=== PATIENT | female | born 1985 | race Caucasian/White ===

== ENCOUNTER 2016-07-11 01:54 | Emergency (ER) | payer BC ==
[~2016-07-11] VITALS: Ht 157.5 cm; Wt 49.9 kg
[~2016-07-11 01:54] MED LIST: ACHD5005 PO; DCS100C PO; FRS325T PO; IBP600T1 PO; OXYC-12 PO; PREN1TAB25 PO
--- OUTSIDE RECORDS SUMMARY | 2016-07-11 02:01 | XMS REPORT | Continuity of Care Document ---
Author Author [facility] Organization [facility] Address Unknown Phone Unavailable Care Team Providers Care Religion Instructor Name Role Phone NO, LOCAL PHYSICIAN PCP Unavailable Insurance Providers Payer Name Policy Number Subscriber [id number] LexisОлег 01 Advance Directives Directive Response Recorded Date/Time Advance Directives No 10/11/14 6:18am Health Care Power of Benefits Counselor No 10/11/14 6:18am Organ Donor Yes 10/11/14 6:18am Resuscitation Status Full Code 10/11/14 6:18am Problems No known problems or medical conditions. Medications Medication Dose Route Sig Days/Qty Instructions Order Date Discontinued Date Status Vit#96/Ferrous Fum/Fa 1 Each PO DAILY 04/06/12 Active Ferrous Sulfate 1 Tab PO DAILY 04/06/12 Active Oxycodone Hcl/Acetaminophen 1 - 2 Each PO Q4-6 hours PRN 45 Qty 10/04/14 Discontinued Ibuprofen 600 Mg PO EVERY 6 HOURS PRN 40 Qty 04/10/12 10/04/14 Discontinued Docusate Sodium 100 Mg PO TWICE A DAY 40 Qty 10/13/14 Active Acetaminophen/Hydrocodone Bitart (Hydrocodone/APAP 5/325mg) 1-2 Tab PO EVERY 4HRS PRN PAIN 50 Qty 10/13/14 Active Ibuprofen 600 Mg PO EVERY 6 HOURS PRN PAIN 60 Qty 10/13/14 Active Social History Social History Problem Response Recorded Date/Time Alcohol Use Denies Use 10/11/2014 6:39am Recreational Drug Use No 10/11/2014 6:39am Recent Foreign Travel No 10/11/2014 6:39am Recent Infectious Disease Exposure No 10/11/2014 6:39am Hospitalization with Isolation Denies 10/13/2014 1:54pm Sexually Transmitted Disease No 10/11/2014 6:39am HIV/AIDS No 10/11/2014 6:39am Smoking Status Never a Smoker 10/11/2014 6:22am Do you dip or chew tobacco? No 10/11/2014 6:22am Query Response Start Date Stop Date Smoking Status Never a Smoker Hospital Discharge Instructions Patient Instructions Physician Instructions New, Converted or Re-Newed RX: RX on Chart Additional Follow Up: Yes Orders/Referrals Return to office Dr. Valiente in 7-10 days, and in 6 weeks Activity: Activity as Tolerated Driving Instructions: You May Drive (do not drive while taking narcotic pain meds) NO SMOKING: NO SMOKING Nothing Inside Vagina: No Douching, No [place], No Tampons Discharge Diet: No Restrictions Symptoms to Report to : Bleeding Excessive, Pain Increased, Fever Over 101 Degrees F, Vaginal Bleeding Increase, Questions/Concerns For Any Problems or Questions: Contact Your Physician Infection Signs and Symptoms: Increased Redness, Foul Odor of Wound, Increased Drainage, Skin Itchy or Has a Rash, Increased Swelling, Temperature Above 101 F Operative Area Clean and Dry: Keep Incision Clean/Dry Stitches/[place]/Dermabond: Dermabond, Care of Stitches Bathing Instructions: Shower Plan of Care Discharge Date 10/13/14 1:30pm Disposition 30 STILL A PATIENT Instructions/Education Provided DISCHARGE SECTION DISCHARGE Forms Provided PDI Prescriptions See Medications Section Referrals LAMAR VALIENTE DO (Unspecified) 10/19/14 Address: [address] [place] [phone] Reason(s) for Referral: Incision Check: 10/19/2014 at 1:30PM. LAMAR VALIENTE DO (Unspecified) 11/23/14 Address: [address] [place] [phone] Reason(s) for Referral: Follow-Up Appointment: 11/23/2014 at 11:00 AM. Functional Status No functional status results. Allergies, Adverse Reactions, Alerts Allergen Type Severity Reaction Status Last Updated No Known Drug Allergies Active 04/06/12 Immunizations Name Given Type Date of Influenza Vaccine 04/01/12 Historical Tetanus Booster (TDap) Less than 5yrs Historical Tdap 10/13/14 Administered Vital Signs Acute Vital Signs Vital Response Date/Time Temperature (Fahrenheit) 97.5 degrees F (97.6 - 99.5) Temperature (Calculated Celsius) 36.21416 degrees C (36.4 - 37.5) Temperature Source Temporal Pulse Rate (adult) 64 bpm (60 - 90) Respiratory Rate 18 bpm (12 - 24) O2 Sat by Pulse Oximetry 99 % (88 - 100) Blood Pressure 107/65 mm Hg Pain Pain Intensity 0 Height (Feet) 5 feet Height (Inches) 2.00 inches Height (Calculated Centimeters) 157.507509 cm Weight (Pounds) 136 pounds Weight (Ounces) 0.8 oz Weight (Calculated Grams) 06628.243 gm Weight (Calculated Kilograms) 61.852052 kilograms Calculated BMI 24.87 Results Laboratory Results Test Name Result Units Flags Reference Collection Date/Time Result Date/ Time Comments White Blood Count 10.3 10^3/uL 4.3-11.0 10/12/2014 5:10/12/2014 5: 55am Red Blood Count 3.32 10^6/uL L 4.35-5.85 10/12/2014 5:10/12/2014 5: 55am Hemoglobin 9.7 G/DL L 11.5-16.0 10/12/2014 5:10/12/2014 5:55am Hematocrit 29 % L 35-52 10/12/2014 5:10/12/2014 5:55am Mean Corpuscular Volume 89 FL 80-99 10/12/2014 5:10/12/2014 5: 55am Mean Corpuscular Hemoglobin 29 PG 25-34 10/12/2014 5:10/12/2014 5: 55am Mean Corpuscular Hemoglobin Concent 33 G/DL 32-36 10/12/2014 5: 5:55am Red Cell Distribution Width 13.7 % 10.0-14.5 10/12/2014 5:34am 2014 5:55am Platelet Count 137 10^3/uL 130-400 10/12/2014 5:10/12/2014 5:55am Mean Platelet Volume 11.3 FL H 7.4-10.4 10/12/2014 5:34am 10/12/2014 5: 55am Neutrophils (%) (Auto) 77 % H 42-75 10/12/2014 5:10/12/2014 5:55am Lymphocytes (%) (Auto) 13 % 12-44 10/12/2014 5:34a10/12/2014 5:55am Monocytes (%) (Auto) 9 % 0-12 10/12/2014 5:10/12/2014 5:55am Eosinophils (%) (Auto) 0 % 0-10 10/12/2014 5:10/12/2014 5:55am Basophils (%) (Auto) 0 % 0-10 10/12/2014 5:10/12/2014 5:55am Neutrophils # (Auto) 7.9 X 10^3 H 1.8-7.8 10/12/2014 5:34a10/12/2014 5: 55am Lymphocytes # (Auto) 1.4 X 10^3 1.0-4.0 10/12/2014 5:34a10/12/2014 5: 55am Monocytes # (Auto) 0.9 X 10^3 0.0-1.0 10/12/2014 5:34a10/12/2014 5: 55am Eosinophils # (Auto) 0.0 10^3/uL 0.0-0.3 10/12/2014 5:10/12/2014 5 :55am Basophils # (Auto) 0.0 10^3/uL 0.0-0.1 10/12/2014 5:10/12/2014 5: 55am Urine Color YELLOW 10/11/2014 8:10am 10/11/2014 8:56am Urine Clarity CLEAR 10/11/2014 8:10am 10/11/2014 8:56am Urine pH 7 5-9 10/11/2014 8:10am 10/11/2014 8:56am Urine Specific [place] 1.005 * 1.016-1.022 10/11/2014 8:10am 2014 8:56am Urine Protein NEGATIVE NEGATIVE 10/11/2014 8:10am 10/11/2014 8:56am Urine Glucose (UA) NEGATIVE NEGATIVE 10/11/2014 8:10am 10/11/2014 8: 56am Urine RBC (Auto) NEGATIVE NEGATIVE 10/11/2014 8:10am 10/11/2014 8: 56am Urine Ketones NEGATIVE NEGATIVE 10/11/2014 8:10am 10/11/2014 8:56am Urine Nitrite NEGATIVE NEGATIVE 10/11/2014 8:10am 10/11/2014 8:56am Urine Bilirubin NEGATIVE NEGATIVE 10/11/2014 8:10am 10/11/2014 8: 56am Urine Urobilinogen NORMAL MG/DL NORMAL 10/11/2014 8:10am 10/11/2014 8: 56am Urine Leukocyte Esterase NEGATIVE NEGATIVE 10/11/2014 8:10am 2014 8:56am Urine RBC NONE /HPF 10/11/2014 8:10am 10/11/2014 8:56am Urine WBC NONE /HPF 10/11/2014 8:10am 10/11/2014 8:56am Urine Bacteria NONE /HPF 10/11/2014 8:10am 10/11/2014 8:56am Urine Squamous Epithelial Cells RARE /HPF 10/11/2014 8:10am 2014 8:56am Urine Crystals NONE /LPF 10/11/2014 8:10am 10/11/2014 8:56am Urine Casts NONE /LPF 10/11/2014 8:10am 10/11/2014 8:56am Urine Mucus NEGATIVE /LPF 10/11/2014 8:10am 10/11/2014 8:56am Urine Culture Indicated NO 10/11/2014 8:10am 10/11/2014 8:56am Procedures Procedure Status Date Provider(s) section completed 10/11/14 LAMAR VALIENTE DO Encounters Encounter Location Date/Time Discharged Inpatient [facility] 10/11/14 6:06am Registered Clinic [facility] 10/04/14 8:58am
[2016-07-11] MEDS ORDERED: TERC80SU4 VG (02:19)
[2016-07-11] MEDS ORDERED: BENZ30CR2 TP (02:19)
[2016-07-11] MEDS ORDERED: AZITHROMYCIN 250 MG TAB (ZITHROMAX) PO STA (02:47)
[2016-07-11] MEDS ORDERED: KETOROLAC 60 MG/2 ML VIAL IM STA (02:47)
[2016-07-11] MEDS ORDERED: LIDOCAINE 2% VISCOUS 15 ML UDC MM ONE (03:00)
[2016-07-11] MEDS ORDERED: LIDOCAINE 1% INJ 20 ML (XYLOCAINE) VIAL INJ ONE (03:00)
[2016-07-11] MEDS ORDERED: cefTRIAXone 1 GM (ROCEPHIN) VIAL IM ONE (03:00)
[2016-07-11] MEDS ORDERED: fluCOnazole (DIFLUCAN) 100 MG TAB PO ONE (03:00)
--- NOTE | 2016-07-11 03:06 | ED GU-Female ---
General Chief Complaint: -Female Stated Complaint: POSS YEAST INFECTION Nursing Triage Note: pt reports has been treating her self for a yeast infection for a couple days but continues to get worse. pt reports pain and swelling to perineal area. Nursing Sepsis Screen: No Definite Risk Source: patient History of Present Illness Time seen by provider: 02:25 Initial Comments C/O PERINEAL AND VAGINAL AND EXTERNAL GENITAL PAIN, SWELLING, ITCHING AND BURNING WITH VAGINAL DISCHARGE X 1 WEEK INITIALLY HAD PAIN IN AREA WITH BM, THEN SYMPTOMS SPREAD TO ENTIRE EXTERNAL GENITAL AREA PAIN IS SEVERE--TOOK 1 HYDROCODONE TONIGHT ( LEFT OVER FROM PREVIOUS CHILDBIRTH ) THOUGHT SHE HAD YEAST INFECTION, SO USED OTC MONISTAT WITHOUT RELIEF RX FOR TERCONAZOLE 80 MG X 3 NIGHTS CALLED IN ON Friday07/08/[address] VALIENTE'S OFFICE, WITHOUT IMPROVEMENT HAS CONTINUED TO HAVE SWELLING AND SEVERE PAIN TO LABIAL AREA NO PROBLEMS URINATING NO FEVER NO ABDOMINAL OR FLANK PAIN LMP 1 WEEK AGO, AT ONSET OF SYMPTOMS. WAS NORMAL. PT IS ON OCP'S PT AND BOTH DENY ANY OTHER SEXUAL CONTACTS. AND DOES NOT HAVE ANY SYMPTOMS PT HAS NO HISTORY OF SIMILAR PT HAS AN APPOINTMENT TODAY AT 1330 [address] MILAGROS BONILLA AT [address]. VALIENTE'S OFFICE. PCP: NONE--GOES TO [facility]RG[facility] FOR MOST MEDICAL CARE IF NEEDED FARM SERVICE ADVISER: DR. VALIENTE Allergies and Home Medications Allergies Coded Allergies: No Known Drug Allergies (Unverified , 04/06/12) Home Medications Benzocaine/Resorcinol 28 Gm Cream..g. 28 GM TP (Reported) Fluconazole 200 Mg Tablet #10 200 MG PO DAILY Prescribed by: JOELLEN GARCIA on 07/11/16313 Hydrocodone/Ibuprofen 1 Each Tablet #20 1-2 EACH PO Q4H Prescribed by: JOELLEN GARCIA on 07/11/16313 Lidocaine HCl 15 Ml Solution #1 15 ML MM Q 1-2 HOURS Prescribed by: JOELLEN GARCIA on 07/11/16313 Metronidazole 500 Mg Tablet #40 500 MG PO QID Prescribed by: JOELLEN GARCIA on 07/11/16313 Terconazole 80 Mg Supp.vag 80 MG VG (Reported) Valacyclovir HCl 1,000 Mg Tablet #30 1,000 MG PO TID Prescribed by: JOELLEN GARCIA on 07/11/16313 Constitutional: no symptoms reported Respiratory: no symptoms reported Cardiovascular: no symptoms reported Gastrointestinal: no symptoms reported Genitourinary: see HPI : No LMP: Jul 04, 2016 Musculoskeletal: no symptoms reported Skin: no symptoms reported Psychiatric/Neurological: No Symptoms Reported Endocrine: No Symptoms Reported Past Sqkvxvd-Tqmsci-Pqezkl Hx Patient Social History Alcohol Use: Occasionally Uses Recreational Drug Use: No Smoking Status: Never a Smoker Recent Foreign Travel: No Contact w/Someone Who Travel: No Recent Infectious Disease Expo: No Recent Hopitalizations: No Physical Abuse Screen: No Sexual Abuse: No Immunizations Up To Date Tetanus Booster (TDap): Less than 5yrs Date of Influenza Vaccine: Feb 24, 2017 Surgeries HX Surgeries: Yes (LEEP, primary 2011) Surgeries: Section Respiratory Hx Respiratory Disorders: No Cardiovascular Hx Cardiac Disorders: No Neurological Hx Neurological Disorders: No Reproductive System Hx Reproductive Disorders: Yes (CERVICAL DISPLASIA-LEEP) Sexually Transmitted Disease: No HIV/AIDS: No Female Reproductive Disorders: Denies Genitourinary Hx Genitourinary Disorders: No Gastrointestinal Hx Gastrointestinal Disorders: No Musculoskeletal Hx Musculoskeletal Disorders: No Endocrine Hx Endocrine Disorders: No HEENT HX ENT Disorders: Yes (CONTACTS) Loss of Vision: Denies Hearing Impairment: Denies Cancer Hx Cancer: No Psychosocial Hx Psychiatric Problems: No Integumentary HX Skin/Integumentary Disorder: No Blood Transfusions Hx Blood Disorders: No Adverse Reaction to a Blood Tr: No Family Medical History Family Medial History: Anxiety disorder 19 FATHER Hypercholesterolemia 19 MOTHER Physical Exam Vital Signs Vital Sign - Last 12Hours 07/11/16 02:12 Temp 99.1 Pulse 97 Resp 18 B/P 121/95 Pulse Ox 95 Capillary Refill : Less Than 3 Seconds General Appearance: WD/WN other (TEARFUL) thin Cardiovascular: regular rate, rhythm no murmur Respiratory: normal breath sounds Gastrointestinal: normal bowel sounds non tender soft Pelvic: normal adnexa no cerv. motion tender no masses discharge (VERY LARGE/ PROFUSE PURULENT DISCHARGE. CERVIX VERY FRIABLE)No tender adnexa, No tender uterus, other (MODERATE SWELLING AND ERYTHEMA TO LABIA MINOR[place] AND CLITORAL AREA. FEW SCATTERED VERY SHALLOW ULCERATIONS/AREAS OF MACERATION TO INTROITUS AND PERINEUM . ) Back: no CVA tenderness Extremities: normal inspection Neurologic/Psychiatric: no motor/sensory deficits alert oriented x 3 Skin: normal color warm/dry Progress/Results/Core Measures Results/Orders Lab Results Laboratory Tests Test 07/11/16 02:32 07/11/16 03:10 Range/Units Urine Bacteria MODERATE H /HPF Urine Bilirubin NEGATIVE NEGATIVE Urine Casts NONE /LPF Urine Clarity SLIGHTLY CLOUDY Urine Color YELLOW Urine Crystals NONE /LPF Urine Culture Indicated YES Urine Glucose (UA) NEGATIVE NEGATIVE Urine Ketones NEGATIVE NEGATIVE Urine Leukocyte Esterase 3+ H NEGATIVE Urine Mucus NEGATIVE /LPF Urine Nitrite NEGATIVE NEGATIVE Urine Protein NEGATIVE NEGATIVE Urine RBC 0-2 /HPF Urine RBC (Auto) 3+ H NEGATIVE Urine Specific [place] 1.015 L 1.016-1.022 Urine Squamous Epithelial Cells 5-10 /HPF Urine Urobilinogen NORMAL NORMAL MG/DL Urine WBC 10-25 H /HPF Urine pH 6.5 5-9 My Orders Orders-JOELLEN GARCIA DO Ceftriaxone Injection (Rocephin Injectio (07/11/16 03:00) Azithromycin Tablet (Zithromax Tablet) (07/11/16 02:47) Ketorolac Injection (Toradol Injection) (07/11/16 02:47) Lidocaine 1% Injection (Xylocaine 1% Inj (07/11/16 03:00) Neisseria Gonorrhea Dna (07/11/16 02:47) Chlam Dna Probe (07/11/16 02:47) Genital Culture (07/11/16 02:47) Wet Prep (07/11/16 02:47) [place] Prep (07/11/16 02:47) Lidocaine 2% Viscous 15 Ml (Xylocaine Vi (07/11/16 03:00) Fluconazole Tablet (Diflucan Tablet) (07/11/16 03:00) Herpes Simplex Culture (07/11/16 02:59) Ua Culture If Indicated (07/11/16 03:11) Urine Bedside (07/11/16 03:11) Urine Culture (07/11/16 03:10) Medications Given in ED Current Medications Medications Dose Ordered Sig/Maryanne Route Start Time Stop Time Status Last Admin Dose Admin Ceftriaxone Sodium 1,000 mg ONCE ONCE IM 07/11/16 03:00 07/11/16 03:01 DC 07/11/16 03:06 1,000 MG Fluconazole 200 mg ONCE ONCE PO 07/11/16 03:00 07/11/16 03:01 DC 07/11/16 03:05 200 MG Lidocaine HCl 2.1 ml ONCE ONCE INJ 07/11/16 03:00 07/11/16 03:01 DC 07/11/16 03:06 2.1 ML Lidocaine HCl 5 ml ONCE ONCE MM 07/11/16 03:00 07/11/16 03:01 DC 07/11/16 03:05 5 ML Vital Signs/I&O Vital Sign - Last 12Hours 07/11/16 07/11/16 02:12 03:28 Temp 99.1 98.9 Pulse 97 89 Resp 18 18 B/P 121/95 Pulse Ox 95 99 Blood Pressure Mean: 104 Progress Note : Progress Note WET PREP--MODERATE WBC'S WILL TREAT EMPIRICALLY FOR YEAST, BACTERIAL AND VIRAL ETIOLOGIES UNTIL CULTURE RESULTS ARE BACK Departure Impression Impression: Primary Impression: Acute vulvovaginitis Additional Impression: Urinary tract infection Disposition: HOME, SELF-CARE Condition: Stable Departure-Patient Inst. Referrals: NO,LOCAL PHYSICIAN (PCP) Primary Care Physician LAMAR VALIENTE DO Patient Instructions: Bacterial Vaginosis (DC), Vaginal Yeast Infection (DC), Vaginitis, Urinary Tract Infection, Adult (DC) Add. Discharge Instructions: COOL COMPRESSES TO AREA NO TAMPONS, DOUCHING OR INTERCOURSE UNTIL YOU ARE CLEARED BY YOUR DR KEEP YOUR APPOINTMENT TODAY WITH DR. VALIENTE'S OFFICE. All discharge instructions reviewed with patient and/or family. Voiced understanding. Scripts Hydrocodone/Ibuprofen (Hydrocodone-Ibuprofen 7.5-200)1 Each Tablet1-2 Each PO Q4H Pain #20 TAB Prov:JOSEJOELLEN Michelle LEDEZMA 07/11/16 Lidocaine HCl (Lidocaine HCl Viscous)15 Ml [id number] Ml MM Q 1-2 HOURS Pain #1 EA Prov:JOSEJOELLEN Michelle DO 07/11/16 Valacyclovir HCl (Valtrex)1,000 Mg Tablet1,000 Mg PO TID #30 TAB Prov:JOSEJOELLEN Michelle LEDEZMA 07/11/16 Metronidazole (Flagyl)500 Mg [id number] Mg PO QID FOR INFECTION #40 TAB Prov:JOSEJOELLEN Michelle LEDEZMA 07/11/16 Fluconazole (Diflucan)200 Mg [id number] Mg PO DAILY FOR YEAST INFECTION #10 TAB Prov:JOSEJOELLENElkin Martinez DO 07/11/16 JOELLEN GARCIA DO Jul 11, 2016 03:06
[2016-07-11] MEDS ORDERED: METR500T PO (03:14)
[2016-07-11] MEDS ORDERED: FLUC200T PO (03:14)
[2016-07-11] MEDS ORDERED: HYDR-87 PO (03:14)
[2016-07-11] MEDS ORDERED: LIDO15SO2 MM (03:14)
[2016-07-11] MEDS ORDERED: VALA10004 PO (03:14)
[2016-07-11 03:28] VITALS: BP 117/87
[2016-07-11 03:28] LABS: BILIRUBIN,URINE NEGATIVE (NEGATIVE); KETONES,URINE NEGATIVE (NEGATIVE); LEUKOCYTE ESTERASE ,URINE 3+ (NEGATIVE); NITRITE,URINE NEGATIVE (NEGATIVE); PH,URINE 6.5 (5-9); PROTEIN,URINE NEGATIVE (NEGATIVE); UROBILINOGEN,URINE NORMAL (NORMAL)
[2016-07-12 07:12] LABS: CHLAMYDIA DNA PROBE PT Negative (Negative); NEISSERIA GONORRHEA DNA Negative (Negative)
== END 2016-07-11 03:28 | disposition home or self-care (01) ==
LOC: EDUNIT# 01:54 → ER 01:56
DX: N76.0 Acute vaginitis (principal); N39.0 Urinary tract infection, site not specified
CPT/HCPCS: 36415; 81000; 84703; 87070; 87088; 87210; 87254; 87491; 87591; 96372; 99284

== ENCOUNTER 2018-09-28 12:12 | Outpatient (RCR) | payer BC, OTHER ==
[~2018-09-28 12:12] MED LIST changes: +BENZ30CR2 TP; +FLUC200T PO; +HYDR-87 PO; +LIDO15SO2 MM; +METR500T PO; +TERC80SU4 VG; +VALA10004 PO
== END 2018-12-27 | disposition home or self-care (01) ==
LOC: CARD 12:12
PROVIDERS: ATTEND Internal Medicine Cardiovascular Disease
DX: R00.2 Palpitations (principal)
CPT/HCPCS: 93225; 93226

== ENCOUNTER → 2018-11-17 | Outpatient (CLI) | payer OTHER | LOC: CARD 08:31 | PROVIDERS: ATTEND Physician Assistant | DX: I49.3 Ventricular premature depolarization (principal); R00.2 Palpitations; I49.9 Cardiac arrhythmia, unspecified | CPT/HCPCS: 93225; 93226 ==